=== PATIENT | male | born 1995 | race Caucasian/White ===

== ENCOUNTER 2020-12-19 05:20 | Emergency (ER) | payer SELFPAY ==
--- NOTE | ~2020-12-19 | XR_ITS ---
EXAMINATION: XR hip RT min 2V DATE: 12/19/2020 06:09 INDICATION: Right hip injury and pain. TECHNIQUE: 2 views of right hip were obtained. COMPARISON: None. FINDINGS: Bone alignment is normal. No fracture. Right hip joint space is normal. IMPRESSION: 1. Normal right hip. Reviewed, dictated and finalized at location [facility]. IMPRESSION: 1. Normal right hip.
--- NOTE | ~2020-12-19 | XR_ITS ---
EXAMINATION: XR knee RT 3V DATE: 12/19/2020 06:09 INDICATION: Right knee injury. TECHNIQUE: 3 views of right knee were obtained. COMPARISON: None. FINDINGS: Bone alignment is normal. No fracture. Joint spaces are well maintained. There is no knee j oint effusion. IMPRESSION: 1. Normal right knee. Reviewed, dictated and finalized at location A. IMPRESSION: 1. Normal right knee.
--- NOTE | ~2020-12-19 | XR_ITS ---
EXAMINATION: XR elbow RT min 3V DATE: 12/19/2020 06:08 INDICATION: Right elbow injury. TECHNIQUE: 4 views of right elbow were obtained. COMPARISON: None. FINDINGS: Bone alignment is normal. No fracture. Joint spaces are well maintained. There is no elbow joint effusion. IMPRESSION: 1. Normal right elbow. Reviewed, dictated and finalized at location A. IMPRESSION: 1. Normal right elbow.
[2020-12-19 05:20] VITALS: BP 147/89; PULSE 100; RESP 20; TEMP 37.1; O2SAT 99
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
[2020-12-19 06:24] VITALS: BP 137/86; PULSE 94; RESP 20; O2SAT 98
[2020-12-19] MEDS: LIDO 1%/EPINEPHRINE 1:100,000 20 ML VIAL INFILTRATE (06:30)
--- NOTE | 2020-12-19 06:36 | PC.NURSE ---
0530 right elbow cleansed with surclenz scrubbing sponge as much as pt would allow by RN. 0630 right elbow numbed with lidocaine per dr queen. wound to elbow deep scrubbing per dr queen.
[2020-12-19] MEDS: TETANUS,DIPHTHERIA,AC PERTUSSIS ADULT 0.5 ML (ADACEL) IM (07:02)
[2020-12-19] MEDS: NEOMYCIN/POLYMYXIN/BACITRACIN OINTMENT PACKET 1 PACKET TOPICAL (07:05)
[2020-12-19 07:17] VITALS: BP 142/70; PULSE 99; RESP 20; TEMP 36.9; O2SAT 99
== END 2020-12-19 07:22 | disposition home or self-care (01) ==
PROVIDERS: Emergency Provider Emergency Medicine
DX: S51.011A Laceration without foreign body of right elbow, initial encounter (principal); T14.8XXA Other injury of unspecified body region, initial encounter; S56.19 Other injury of flexor muscle, fascia and tendon of other and unspecified finger at forearm level; V29.9XXA Motorcycle rider (driver) (passenger) injured in unspecified traffic accident, initial encounter
CPT/HCPCS: 12001; 73080; 73502; 73562; 90471; 90715; 99283; 99284

== ENCOUNTER 2021-03-06 16:04 | Emergency (ER) | payer BC, SELFPAY ==
--- NOTE | ~2021-03-06 | CT_ITS ---
EXAMINATION: CT abdomen pelvis wo con DATE: 03/06/2021 18:49 INDICATION: Hematuria TECHNIQUE: Computed tomography (CT) of the abdomen and pelvis was performed without intravenous contr ast. Automated exposure control and iterative reconstruction technique were employed. The dose-length product was 166.78 mGy-cm. COMPARISON: 02/05/2019 FINDINGS: Lung bases are clear. Visualized inferior heart is normal. No pericardial or pleural effusion. Liver, gallbladder, spleen, pancreas and bilateral adrenal glands are normal. Bilateral nonobstructing neph rolithiasis with 5 mm stone at the left renal pelvis and 2 mm stone at the lower pole of the right ki dney and 2-3 mm stones at the mid and lower left kidney. No stones seen along the course of the bilat eral ureters. No hydronephrosis. There are scattered colonic diverticula without adjacent inflammator y change to suggest diverticulitis. Small bowel and appendix are normal. Bladder is normal. No free i ntraperitoneal gas or fluid. Shotty bilateral inguinal lymph nodes. No pathologically enlarged abdomi nal or pelvic lymphadenopathy. Mild lumbar levocurvature. IMPRESSION: 1. Bilateral nonobstructing nephrolithiasis. Reviewed, dictated and finalized at location A.
[2021-03-06 16:07] VITALS: BP 116/86; PULSE 98; RESP 14; TEMP 36.4; O2SAT 98
[2021-03-06 17:04] LABS: Add Urine Microscopic? YES; Appearance Urine Cloudy (Clear); Bilirubin Urine Negative (Negative); Blood Urine 3+ (Negative); Color Urine Amber (Yellow); Glucose Urine UA Negative (Negative); Ketones Urine Negative (Negative); Leukocyte Esterase Ur 2+ LEU/UL (Negative); Mucus Urine Heavy /lpf; Nitrate Urine Negative (Negative); Protein Urine 2+ mg/dL (Negative); RBC Urine >75 /hpf (0-2); Specific Grav Ur 1.029 (1.001-1.035); WBC Clumps Urine Present /HPF; WBC Urine >75 /hpf
[2021-03-06 17:14] LABS: Squamous Epithelial Cell Urine Occasional /hpf (Few)
[2021-03-06 17:57] LABS: Basophils Absolute Auto 0.1 K/mm3 (0.0-0.1); Basophils Percent Auto 0.9 % (0.2-1.2); Eosinophils Absolute Auto 0.2 K/mm3 (0-0.3); Eosinophils Percent Auto 2.8 % (0-4.4); Hematocrit 46.9 % (42.0-52.0); Hemoglobin 15.1 g/dL (14.0-18.0); Immature Granulocyte Absolute 0.04 K/mm3 (0.00-0.031); Immature Granulocyte Percent A 0.5 % (0-0.5); Lymphocytes Absolute Auto 2.16 K/mm3 (0.9-3.2); Lymphocytes Percent Auto 27.2 % (18.3-44.2); Mean Corpuscular HGB Conc 32.2 g/dl (32-36); Mean Corpuscular Hemoglobin 29.3 pg (26-34); Mean Corpuscular Volume 90.9 fl (80-100); Monocytes Absolute Auto 0.7 K/mm3 (0.1-0.6); Monocytes Percent Auto 9.1 % (2.6-8.5); Neutrophils Absolute Auto 4.7 K/mm3 (1.3-6.7); Neutrophils Percent Auto 59.5 % (45.5-73.1); Platelet Count Result 274 k/mm3 (150-375); Red Blood Count 5.16 M/mm3 (4.6-6.20); Red Cell Distribution Width 13.4 % (11.5-14.5)
[2021-03-06 18:25] LABS: Alanine Aminotransferase 12 U/L (4-50); Albumin Level 4.6 g/dL (3.5-5.1); Alkaline Phosphatase 79 U/L (38-126); Anion Gap 8 mmol/L (8-16); Aspartate Amino Transferase 26 U/L (17-59); Bilirubin,Total 0.4 mg/dL (0.2-1.3); Blood Urea Nitrogen 12 mg/dL (9-20); Calcium 9.7 mg/dL (8.4-10.2); Carbon Dioxide 28 mmol/L (22-30); Chloride 105 mmol/L (98-107); Estimated CRCL calculation 66 ml/min; Estimated Glomerular Filt Rate > 60; Glucose 86 mg/dL (75-110); Potassium 4.2 mmol/L (3.4-5.0); Sodium 141 mmol/L (137-145)
--- NOTE | 2021-03-06 18:33 | ED.ABDPAIN ---
HPI - Abdominal Pain General Chief Complaint: Urogenital-Male Stated Complaint: KIDNEY STONE, HEMATURIA Time Seen by Provider: 03/06/21 18:24 Source: RN notes reviewed History of Present Illness HPI narrative: Patient presents emergency department from home for hematuria. Patient states symptoms began today. Patient states approximately month ago he was diagnosed with kidney stones another emergency department. He states that that time he was told he had a UTI and was prescribed Cipro 250 mg twice a day states he does not take that medication until he began taking it a week ago he states he does not know why did not take it previously but states he is now only taking 1 tablet a day he denies any fever chills chest pain shortness of breath or abdominal pain notes mild flank pain Related Data Allergies Allergy/AdvReac Type Severity Reaction Status Date / Time No Known Allergies Allergy Unverified 01/28/17 13:59 Review of Systems Review of Systems: Narrative: Gen.: Denies fevers or chills ENT: Denies congestion Respiratory: Denies shortness of breath or cough CV: Denies chest pain or palpitations GI: Denies abdominal pain nausea, emesis or diarrhea reports flank pain reports hematuria Musculoskeletal: Denies back pain or muscle pain Neuro: Denies numbness, tingling, weakness or focal weakness Skin: Denies rash Except as documented, all other systems reviewed and negative [facility] Past Medical History Medical History Kidney stones Seasonal allergies Social History Social History Smoking packs per day: 1 Smoking cigarettes per day: 20.0 Smoking status: Current every day smoker Tobacco type: cigarettes Alcohol intake: never Substance use: current Substance use type: marijuana Exam Narrative: Exam Narrative: APPEARANCE: No acute distress, nontoxic, resting in bed EYES: EOMI HEENT: Normocephalic, atraumatic, OMM RESPIRATORY: No respiratory distress Clear to auscultation bilaterally with no rhonchi wheezing or rales. CARDIOVASCULAR: Regular rate and rhythm without murmurs rubs or gallops. ABDOMINAL: Soft, nontender, nondistended, no rebound or guarding mild bilateral flank tenderness MUSCULOSKELETAl: Moves all extremities. No clubbing, cyanosis or edema. NEURO: Awake and alert. Following commands, speech normal, no focal deficits SKIN:: Warm, dry. No rashes lesions or abrasions PSYCHIATRIC: Normal affect/mood, Course Course Emergency Course: Called and discussed with Dr. rPado patient at this time recommends patient Cipro be increased to 500 mg twice a day with discharge and follow-up as an outpatient Discussed with patient results of workup and diagnosis. Discussed need for follow-up with primary care, proper use of medication, and reasons to return to the emergency department. Patient understands and agrees to current treatment plan Vital Signs Vital signs: Vital Signs Temperature 97.5 F L 03/06/21 16:07 Pulse Rate 98 03/06/21 16:07 Respiratory Rate 14 03/06/21 16:07 Blood Pressure 116/86 03/06/21 16:07 Pulse Oximetry 98 03/06/21 16:07 Temperature 97.5 F L 03/06/21 16:07 Pulse Rate 98 03/06/21 16:07 Respiratory Rate 14 03/06/21 16:07 Blood Pressure 116/86 03/06/21 16:07 Pulse Oximetry 98 03/06/21 16:07 MDM - Abdominal Pain Lab Data Result diagrams: 03/06/21 17:49 03/06/21 17:49 Labs: Lab Results 03/06/21 03/06/21 03/06/21 Range/Units 16:46 17:49 17:49 WBC 8.0 (4.5-10.0) K/mm3 RBC 5.16 (4.6-6.20) M/mm3 Hgb 15.1 (14.0-18.0) g/dL Hct 46.9 (42.0-52.0) % MCV 90.9 (80-100) fl MCH 29.3 (26-34) pg MCHC 32.2 (32-36) g/dl RDW 13.4 (11.5-14.5) % Plt Count 274 (150-375) k/mm3 MPV 9.0 (7.4-10.4) fl Immature Gran % (Auto) 0.5 (0-0.5) % Neut % (Auto) 59.5 (45.5-73.1) %
[2021-03-06 20:04] VITALS: BP 107/74; PULSE 75; RESP 18; TEMP 36.7; O2SAT 100
[2021-03-06] MEDS: CIPROFLOXACIN 500 MG TAB PO (20:04)
[2021-03-06 20:18] VITALS: BP 110/78; PULSE 78; RESP 18; TEMP 36.7
== END 2021-03-06 20:19 | disposition home or self-care (01) ==
PROVIDERS: Emergency Medicine; Emergency Provider Emergency Medicine
DX: N39.0 Urinary tract infection, site not specified (principal); N20.0 Calculus of kidney; Z87.442 Personal history of urinary calculi; F17.210 Nicotine dependence, cigarettes, uncomplicated
CPT/HCPCS: 36415; 74176; 80053; 81001; 83605; 85025; 87086; 99284; A9270

== ENCOUNTER 2022-02-26 10:01 | Emergency (ER) | payer BC, SELFPAY ==
--- NOTE | ~2022-02-26 | CT_ITS ---
EXAMINATION: CT abdomen pelvis w con DATE: 02/26/2022 10:49 INDICATION: Right lower quadrant and right flank abdominal pain, nausea. TECHNIQUE: Computed tomography (CT) of the abdomen and pelvis was performed with 100 CC Omnipaque 300 intravenous contrast. Automated exposure control and iterative reconstruction technique were employe d. Exam dose: 170.20 mGy-cm total exam DLP. COMPARISON: 03/06/2020 CT abdomen pelvis FINDINGS: Lung bases are clear. Heart size is normal. No pericardial or pleural effusion. The lung bases are clear. The liver, gallbladder, spleen, pancreatic duct and adrenal glands are normal. No bile duct or pancre atic duct dilatation. 15 x 6 mm right renal pelvic calculus with attenuation of 1268 Hounsfield units. There is mild right hydronephrosis. 2.9 x 4.2 mm lower pole nonobstructing right renal calculus. Approximately 2 x 3.4 mm mid left renal calculus. 1.6 x 2.4 mm lower pole nonobstructing left renal calculus. No ureteral calculus is noted on either side. Normal caliber of the abdominal aorta. No intraperitoneal or retroperitoneal or pelvic mass lesion or adenopathy or ascites. Normal appendix. No bowel obstruction or intraperitoneal free air. The urinary bladder is unremarkable except for diffuse moderate thickening of the wall; recommend cli nical correlation to exclude cystitis. Included skeletal structures are unremarkable. IMPRESSION: 15 x 6 mm right renal pelvic calculus with mild right hydronephrosis Bilateral nonobstructive nephrolithiasis Thickening of the urinary bladder wall; recommend clinical correlation for possible cystitis Normal appendix Reviewed, dictated and finalized at [facility]. Reviewed, dictated and finalized at location A. IMPRESSION: 15 x 6 mm right renal pelvic calculus with mild right hydronephros is Bilateral nonobstructive nephrolithiasis Thickening of the urinary bladder wall; recommend clinical correlation for poss ible cystitis Normal appendix
[2022-02-26 10:06] VITALS: BP 114/78; PULSE 89; RESP 14; TEMP 36.3; O2SAT 100
--- NOTE | 2022-02-26 10:09 | ED.ABDPAIN ---
HPI - Abdominal Pain General Chief Complaint: Abdominal Pain Stated Complaint: kidney stones Time Seen by Provider: 02/26/22 10:03 History of Present Illness HPI narrative: 26-year-old male presents the emergency room with a sudden onset of right lower quadrant pain. Pain is associated with nausea. Describes pain as a throbbing and stabbing pain. Denies radiating pain. Patient has a history of kidney stones, and has had lithotripsy and stent placement in the past. Also reports decreased urination output. Denies fever, injury or trauma. Denies vomiting, diarrhea or constipation. 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 EYES: Denies visual changes, redness, or discharge. ENT: Denies rhinorrhea, congestion, sore throat, or otalgia. CARDIOVASCULAR: Denies chest pain, palpitations, or edema. RESPIRATORY: Denies cough or dyspnea. GASTROINTESTINAL: Reports abdominal pain, nausea GENITOURINARY: Denies dysuria or hematuria. SKIN: Denies rash or itching. MUSCULOSKELETAL: Denies back pain, joint pain, or myalgia. NEUROLOGIC: Denies headache, numbness, dizziness, or weakness. PSYCHIATRIC: Denies anxiety or depression. PMFSH Past Medical History Medical History Kidney stones Seasonal allergies Social History Social History Smoking packs per day: 1 Smoking cigarettes per day: 20.0 Smoking status: Current every day smoker Tobacco type: cigarettes Alcohol intake: never Substance use: current Substance use type: marijuana Gender identity (if verbalized by the patient): Male Exam Narrative: GENERAL: Well-appearing, well-nourished, no physical limitations, and in no acute distress. HEAD: Normocephalic, atraumatic. EYES: Conjunctivae normal, PERRLA and EOMI. CHEST: Clear to auscultation. No respiratory distress. No wheezes rales or rhonchi. No tenderness. HEART: Regular rate and rhythm. No murmur heard. Normal peripheral pulses. ABDOMEN: Soft, right lower quadrant tenderness,, nondistended, normal active bowel sounds. Negative psoas or obturator signs, negative heel strike BACK: Right CVA tenderness; EXTREMITIES: Normal range of motion. No edema. No clubbing or cyanosis SKIN: Warm, dry, no rash. No noted wounds NEURO: No focal deficits. Alert and oriented x3. MAEW. CN's II-XI intact bilaterally, normal gait PSYCH: Cooperative. Normal mood and affect. Course Vital Signs Vital signs: Vital Signs Temperature 36.3 C L 02/26/22 10:06 Pulse Rate 89 02/26/22 10:06 Respiratory Rate 14 02/26/22 10:06 Blood Pressure 114/78 02/26/22 10:06 Pulse Oximetry 100 02/26/22 10:06 Oxygen Delivery Room Air 02/26/22 10:06 Temperature 36.3 C L 02/26/22 10:06 Pulse Rate 70 02/26/22 10:58 Respiratory Rate 16 02/26/22 11:43 Blood Pressure 108/63 02/26/22 11:43 Pulse Oximetry 98 02/26/22 11:45 Oxygen Delivery Room Air 02/26/22 10:06 MDM - Abdominal Pain Lab Data Result diagrams: 02/26/22 10:11 02/26/22 10:11 Labs: Lab Results 02/26/22 02/26/22 02/26/22 Range/Units 10:11 10:11 11:36 WBC 9.0 (4.5-10.0) K/mm3 RBC 4.98 (4.6-6.20) M/mm3 Hgb 14.5 (14.0-18.0) g/dL Hct 44.0 (42.0-52.0) % MCV 88.4 (80-100) fl MCH 29.1 (26-34) pg MCHC 33.0 (32-36) g/dl RDW 13.5 (11.5-14.5) % Plt Count 335 (150-375) k/mm3 MPV 9.3 (7.4-10.4) fl Immature Gran % (Auto) 0.2 (0-0.5) % Neut % (Auto) 64.8 (45.5-73.1) % Lymph % (Auto) 25.4 (18.3-44.2) % [place] % (Auto) 6.7 (2.6-8.5) % Eos % (Auto) 2.0 (0-4.4) % Baso % (Auto) 0.9 (0.2-1.2) % L
[2022-02-26 10:19] LABS: Basophils Absolute Auto 0.1 K/mm3 (0.0-0.1); Basophils Percent Auto 0.9 % (0.2-1.2); Eosinophils Absolute Auto 0.2 K/mm3 (0-0.3); Hemoglobin 14.5 g/dL (14.0-18.0); Immature Granulocyte Absolute 0.02 K/mm3 (0.00-0.031); Immature Granulocyte Percent A 0.2 % (0-0.5); Lymphocytes Absolute Auto 2.28 K/mm3 (0.9-3.2); Lymphocytes Percent Auto 25.4 % (18.3-44.2); Mean Corpuscular Hemoglobin 29.1 pg (26-34); Mean Corpuscular Volume 88.4 fl (80-100); Mean Platelet Volume 9.3 fl (7.4-10.4); Monocytes Absolute Auto 0.6 K/mm3 (0.1-0.6); Monocytes Percent Auto 6.7 % (2.6-8.5); Neutrophils Absolute Auto 5.8 K/mm3 (1.3-6.7); Neutrophils Percent Auto 64.8 % (45.5-73.1); Platelet Count Result 335 k/mm3 (150-375); Red Blood Count 4.98 M/mm3 (4.6-6.20); Red Cell Distribution Width 13.5 % (11.5-14.5)
[2022-02-26] MEDS: SODIUM CHLORIDE 0.9% IV 500 ML 999 ML IV CONT (10:19)
[2022-02-26] MEDS: ONDANSETRON INJ 4 MG/2 ML VIAL IV PUSH (10:19)
[2022-02-26] MEDS: fentaNYL CITRATE INJ (*CRX) 100 MCG/2 ML VIAL 50 MCG IV PUSH (10:19)
[2022-02-26 10:20] VITALS: BP 107/95; PULSE 88; RESP 16; O2SAT 99
[2022-02-26 10:40] LABS: Alanine Aminotransferase 15 U/L (6-50); Albumin Level 4.8 g/dL (3.5-5.1); Alkaline Phosphatase 66 U/L (38-126); Anion Gap 8 mmol/L (8-16); Aspartate Amino Transferase 25 U/L (17-59); Bilirubin,Total 0.4 mg/dL (0.2-1.3); Blood Urea Nitrogen 13 mg/dL (9-20); Calcium 8.9 mg/dL (8.4-10.2); Carbon Dioxide 27 mmol/L (22-30); Chloride 105 mmol/L (98-107); Estimated CRCL calculation 84 ml/min; Estimated Glomerular Filt Rate > 60; Glucose 102 mg/dL (65-110); Potassium 4.3 mmol/L (3.4-5.0); Sodium 140 mmol/L (137-145)
[2022-02-26 10:58] VITALS: BP 106/70; PULSE 70; RESP 14; O2SAT 99
--- NOTE | 2022-02-26 10:59 | PC.NURSE ---
Pt asked to provide urine sample. Pt states he is unable to void at this time.
[2022-02-26 11:43] VITALS: BP 108/63; RESP 16; O2SAT 98
[2022-02-26 11:44] LABS: Appearance Urine Clear (Clear); Bilirubin Urine Negative (Negative); Blood Urine 3+ (Negative); Color Urine Yellow (Yellow); Glucose Urine UA Negative (Negative); Ketones Urine Negative (Negative); Leukocyte Esterase Ur Negative LEU/UL (Negative); Nitrate Urine Negative (Negative); Protein Urine 2+ mg/dL (Negative); Specific Grav Ur <= 1.005 (1.001-1.035); Urobilinogen Urine 0.2 mg/dL (<2.0)
[2022-02-26 11:45] VITALS: O2SAT 98
[2022-02-26 11:56] LABS: Bacteria Urine Trace /hpf; Calcium Oxalate Crystals Urine Present /hpf; Mucus Urine Moderate /lpf; RBC Urine 51-75 /hpf (0-2); WBC Urine 21-30 /hpf
[2022-02-26 11:59] LABS: Add Urine Microscopic? YES
[2022-02-26 12:22] VITALS: BP 101/56; PULSE 73; RESP 18; O2SAT 98
== END 2022-02-26 12:24 | disposition home or self-care (01) ==
PROVIDERS: Emergency Provider Nurse Practitioner Family
DX: R31.9 Hematuria, unspecified (principal); F17.210 Nicotine dependence, cigarettes, uncomplicated
CPT/HCPCS: 36415; 74177; 80053; 81001; 85025; 87086; 96361; 96374; 96375; 99284; J2405; J3010; J7040; Q9967

== ENCOUNTER 2022-04-03 23:50 | Emergency (ER) | payer BC, SELFPAY ==
[2022-04-04] VITALS: BP 130/88; PULSE 68; RESP 18; TEMP 36.4; O2SAT 100
--- NOTE | 2022-04-04 00:12 | ED.URI ---
HPI - URI/Sore Throat General Chief Complaint: Upper Respiratory Infection Stated Complaint: covid Source: patient Mode of arrival: ambulatory History of Present Illness HPI Narrative: this is a 26-year-old gentleman that presents after he tested positive earlier this evening with body aches currently no shortness of breath O2 sat 100% no fever chills had an episode of nausea with no abdominal pain no chest pain no diarrhea constipation. Onset (ago): hour(s) Consistency: constant Severity: moderate Related Data Allergies Allergy/AdvReac Type Severity Reaction Status Date / Time No Known Allergies Allergy Verified 04/03/22 23:58 Review of Systems Review of Systems: All systems reviewed & are unremarkable except as noted in HPI and below PMFSH Past Medical History Medical History Kidney stones Seasonal allergies Social History Social History Smoking packs per day: 1 Smoking cigarettes per day: 20.0 Smoking status: Current every day smoker Tobacco type: cigarettes Alcohol intake: never Substance use: current Substance use type: marijuana Gender identity (if verbalized by the patient): Male Exam Const: General: healthy appearing and no acute distress Limitations: no limitations HENMT: Head: normal to inspection Face and sinus: normal facial exam Mouth: Yes Normal oral and palatal mucosa present Eyes: Conjunctivae: conjunctivae normal Pupils: Equal, round and reactive pupils present EOM: EOMs intact bilaterally Direct Ophthalmoscopy: no photophobia Neck: Neck: normal visual inspection Chest: Chest palpation & inspection: normal inspection of the chest Resp: Effort & Inspection: normal respiratory effort Auscultation: clear to auscultation bilaterally Cardio: Rate: regular rate Rhythm: regular rhythm GI: GI Palp: Yes Soft to palpation Auscultation: normal bowel sounds Skin: General skin exam: normal color Rashes: no rashes Wounds: no wounds Neuro: General: patient oriented x3 and moves all extremities Cranial nerves: Yes Nystagmus not present Extrem: General: normal to inspection Psych: Mental Status: mental status grossly normal Course Course Emergency Course: Patient received a dose of ibuprofen and given IV fluids with normal saline and Paxlovid was sent to his pharmacy. Vital Signs Vital signs: Vital Signs Temperature 36.4 C 04/04/22 00:00 Pulse Rate 68 04/04/22 00:00 Respiratory Rate 18 04/04/22 00:00 Blood Pressure 130/88 04/04/22 00:00 Pulse Oximetry 100 04/04/22 00:00 Oxygen Delivery Room Air 04/04/22 00:00 Temperature 36.4 C 04/04/22 00:00 Pulse Rate 68 04/04/22 00:00 Respiratory Rate 18 04/04/22 00:00 Blood Pressure 130/88 04/04/22 00:00 Pulse Oximetry 100 04/04/22 00:00 Oxygen Delivery Room Air 04/04/22 00:00 Critical Care Time Critical Care Time Critical Care Time: No Discharge Plan Discharge Clinical Impression: COVID-19 Patient Disposition: Home, Self-Care Condition: Stable Instructions: Antibiotic Form, COVID-19 (Coronavirus Disease 2019) (ED) Additional Instructions: take medicine as prescribed, and take Tylenol or Motrin drink plenty of water and follow up primary care physician after self isolating for approximately 1 week. Prescriptions: New Paxlovid (EUA) 300 mg (150 mg x 2)-100 mg tablets,dose pack See Rx Instructions .ROUTE .COMPLEX Qty: 30 0RF Rx Instructions: take TWO 150 mg tablets of nirmatrelvir with ONE 100 mg tablet of ritonavir twice daily for 5 days Follow-up/Referrals: UNKNOWN,DOCTOR [Primary Care Provider] - Time of Disposition: 00:16
[2022-04-04] MEDS: IBUPROFEN 600 MG TABLET PO (00:26)
[2022-04-04] MEDS: SODIUM CHLORIDE 0.9% IV 1,000 ML 999 ML IV CONT (00:26)
[2022-04-04 01:34] VITALS: BP 135/80; PULSE 78; RESP 16; O2SAT 98
== END 2022-04-04 01:42 | disposition home or self-care (01) ==
PROVIDERS: Emergency Provider Emergency Medicine
DX: U07.1 COVID-19 (principal)
CPT/HCPCS: 96360; 99283; A9270; J7030

== ENCOUNTER 2022-09-18 19:13 | Emergency (ER) | payer BC, SELFPAY ==
--- NOTE | ~2022-09-18 | CT_ITS ---
EXAMINATION: CT abdomen pelvis wo con DATE: 09/18/2022 19:40 INDICATION: Left-sided abdomen pain. History of kidney stones. TECHNIQUE: Computed tomography (CT) of the abdomen and pelvis was performed without intravenous contr ast. The dose-length product was 177.20 mGy-cm. Automated exposure control and iterative reconstructi on technique were employed. COMPARISON: CT dated 02/26/2022. FINDINGS: Lung bases are unremarkable. Heart size normal. No significant pleural or pericardial effus ion. The liver, spleen, pancreas, adrenal glands are unremarkable. There is a 6 x 4 mm left UVJ stone with mild hydroureteronephrosis. There are bilateral renal stones. Largest stone in the right renal pelvi s measuring 20 x 9 mm. Mild right renal caliectasis. No significant vascular abnormality. Gallbladder is present. The liver, spleen, pancreas, adrenal glands are unremarkable. No lymphadenopathy. No acute osseous ab normality. Nonobstructive bowel gas pattern. No free air or free fluid. Bladder is decompressed. IMPRESSION: 1. 6 mm left UVJ stone with mild hydroureteronephrosis. 2: Bilateral nephrolithiasis. Reviewed, dictated and finalized at location A. [employer]
[2022-09-18 19:19] VITALS: BP 123/94; PULSE 73; RESP 20; TEMP 36.6; O2SAT 100
[2022-09-18 19:29] LABS: Add Urine Microscopic? YES; Appearance Urine Clear (Clear); Bilirubin Urine Negative (Negative); Blood Urine 3+ (Negative); Color Urine Light Yellow (Yellow); Glucose Urine UA Negative (Negative); Ketones Urine Negative (Negative); Leukocyte Esterase Ur 2+ LEU/UL (Negative); Nitrate Urine Negative (Negative); Protein Urine 1+ (Negative); Specific Grav Ur 1.025 (1.010-1.020); pH Urine 6.5 (5.0-8.0)
[2022-09-18 19:37] LABS: Basophils Absolute Auto 0.08 K/mm3 (0.00-0.10); Basophils Percent Auto 0.6 % (0.0-1.0); Eosinophils Percent Auto 1.4 % (1.0-6.0); Hematocrit 44.3 % (40.0-54.0); Hemoglobin 14.5 g/dL (14.0-18.0); Immature Granulocyte Absolute 0.04 K/mm3 (0.00-0.00); Immature Granulocyte Percent A 0.3 % (0.0-0.0); Lymphocytes Absolute Auto 2.29 K/mm3 (1.10-4.50); Mean Corpuscular HGB Conc 32.7 g/dL (32.0-36.0); Mean Corpuscular Hemoglobin 28.7 pg (27.0-31.0); Mean Corpuscular Volume 87.7 fL (78.0-102.0); Monocytes Absolute Auto 1.15 K/mm3 (0.10-0.90); Monocytes Percent Auto 8.1 % (2.0-11.0); Neutrophils Absolute Auto 10.5 K/mm3 (1.7-7.2); Neutrophils Percent Auto 73.6 % (50.0-70.0); Platelet Count Result 350 K/mm3 (150-420); Red Blood Count 5.05 M/mm3 (4.70-6.10); Red Cell Distribution Width 13.7 % (11.6-14.4); White Blood Count 14.3 K/mm3 (4.8-10.8)
[2022-09-18] MEDS: SODIUM CHLORIDE 0.9% IV 1,000 ML 999 ML IV CONT (19:37)
[2022-09-18] MEDS: KETOROLAC 30 MG/ML VIAL (*BKC) IV PUSH (19:39)
[2022-09-18 19:40] LABS: Bacteria Urine 1+ /hpf; RBC Urine >75 /hpf (0-2); Squamous Epithelial Cell Urine None seen /hpf (Few); WBC Urine 16-20 /hpf (0-3)
[2022-09-18] MEDS: ONDANSETRON INJ 4 MG/2 ML VIAL IV PUSH (19:40)
[2022-09-18 19:52] LABS: Partial Thromboplastin Time 28.2 SEC (23.90-30.70); Prothrombin Time 10.6 Seconds (9.50-12.10)
[2022-09-18 19:53] LABS: Alanine Aminotransferase 18 U/L (16-63); Albumin Level 4.1 g/dL (3.4-5.0); Alkaline Phosphatase 106 U/L (46-116); Anion Gap 10 mmol/L (8-16); Aspartate Amino Transferase 19 U/L (15-37); Bilirubin,Total 0.2 mg/dL (0.00-1.00); Blood Urea Nitrogen 16 mg/dL (7-18); Calcium 9.2 mg/dL (8.5-10.1); Carbon Dioxide 29 mmol/L (21-32); Chloride 104 mmol/L (98-108); Estimated CRCL calculation 72 ml/min; Estimated Glomerular Filt Rate > 60; Glucose 102 mg/dL (70-99); Lipase 28 U/L (16-77); Osmolality Calculated 297 mOsm/kg (285-295); Potassium 3.8 mmol/L (3.5-5.1); Sodium 143 mmol/L (136-145)
--- NOTE | 2022-09-18 20:02 | ED.ABDPAIN ---
HPI - Abdominal Pain General Chief Complaint: Abdominal Pain Stated Complaint: pain on left side Time Seen by Provider: 09/18/22 19:19 Source: patient Mode of arrival: ambulatory Limitations: no limitations History of Present Illness HPI narrative: this is a 27-year-old male with history of kidney stones presents with some left flank pain radiating into his left groin area started earlier today with nausea, with no fever chills vitals are stable. Patient has no fever chills does have nausea with an episode of vomiting rates his pain about an 8/10 has a history of a kidney stones, with some no chest pain no shortness of breath. MD elicited complaint: abdominal pain Pertinent past history: none Onset (ago): day(s) Pain Consistency: constant Location: none Severity: severe Pain scale (0-10): 8 Quality: aching Related Data Allergies Allergy/AdvReac Type Severity Reaction Status Date / Time No Known Allergies Allergy Verified 04/03/22 23:58 Review of Systems Review of Systems: All systems reviewed & are unremarkable except as noted in HPI and below PMFSH Past Medical History Medical History Kidney stones Seasonal allergies Social History Social History Smoking packs per day: 1 Smoking cigarettes per day: 20.0 Smoking status: Current every day smoker Tobacco type: cigarettes Alcohol intake: never Substance use: current Substance use type: marijuana Gender identity (if verbalized by the patient): Male Exam Const: General: healthy appearing Nutritional Appearance: well nourished Orientation/consciousness: patient oriented x3 Limitations: no limitations HENMT: Head: normal to inspection Ears: external ears normal Face and sinus: normal facial exam Mouth: Yes Normal oral and palatal mucosa present Eyes: Conjunctivae: conjunctivae normal Pupils: Equal, round and reactive pupils present EOM: EOMs intact bilaterally Neck: Neck: normal visual inspection Chest: Chest palpation & inspection: normal inspection of the chest Resp: Effort & Inspection: normal respiratory effort Auscultation: clear to auscultation bilaterally Cardio: Rate: regular rate Rhythm: regular rhythm GI: GI Palp: Yes Soft to palpation Auscultation: normal bowel sounds : General: Yes bladder normal to palpation Skin: General skin exam: normal color Rashes: no rashes Wounds: no wounds Neuro: General: patient oriented x3, moves all extremities, no meningeal signs and no focal motor deficits Cranial nerves: Yes Nystagmus not present Extrem: General: normal to inspection and no clubbing, cyanosis or edema Psych: Mental Status: mental status grossly normal Course Course Emergency Course: Labs reviewed with patient, patient has an elevated white count will give a dose of IV ceftriaxone 1g, patient received 30mg IV Toradol and pain has improved as well as receiving Zofran for nausea. CT scan reviewed and shows a 6x4mm stone at the left UVJ, and discussed the findings with urologist. Vital Signs Vital signs: Vital Signs Temperature 36.6 C 09/18/22 19:19 Pulse Rate 73 09/18/22 19:19 Respiratory Rate 20 09/18/22 19:19 Blood Pressure 123/94 H 09/18/22 19:19 Pulse Oximetry 100 09/18/22 19:19 Oxygen Delivery Room Air 09/18/22 19:19 Temperature 36.6 C 09/18/22 19:19 Pulse Rate 73 09/18/22 19:19 Respiratory Rate 20 09/18/22 19:19 Blood Pressure 123/94 H 09/18/22 19:19 Pulse Oximetry 100 09/18/22 19:19 Oxygen Delivery Room Air 09/18/22 19:19 MDM - Abdominal Pain Lab Data 09/18/22 19:32 09/18/22 19:32 Labs: Lab Results 09/18/22 09/18/22 09/18/22 Range/Units 19:26 19:32 19:32 WBC 14.3 H (4.8-10.8) K/mm3 RBC 5.05 (4.70-6.10) M/mm3 Hgb 14.5 (14.0-18.0) g/dL Hct 44.3 (40.0-54.0) % MCV 87.7 (78.0-102.0)
[2022-09-18 20:42] VITALS: BP 136/86; PULSE 69; RESP 20; TEMP 36.7; O2SAT 100
== END 2022-09-18 20:44 | disposition home or self-care (01) ==
PROVIDERS: Emergency Provider Emergency Medicine
DX: N20.1 Calculus of ureter (principal); F17.210 Nicotine dependence, cigarettes, uncomplicated
CPT/HCPCS: 36415; 74176; 80053; 81001; 83605; 83690; 85025; 85610; 85730; 87086; 96361; 96365; 96375; 99284; J0696; J1885; J2405; J7030

== ENCOUNTER 2024-04-30 14:49 | Emergency (ER) | payer BC, SELFPAY ==
[2024-04-30 14:54] VITALS: BP 123/62; PULSE 64; RESP 18; TEMP 36.2; O2SAT 100
--- NOTE | 2024-04-30 14:54 | ED.NAVMDI ---
HPI - Nausea/Vomiting/Diarrhea General Chief complaint: Nausea/Vomiting/Diarrhea Stated complaint: drank to much , vomiting Source: patient Mode of arrival: ambulatory Limitations: no limitations History of Present Illness HPI Narrative: 28-year-old male, smoker presented to the ED after ingesting a large amount of alcohol yesterday with -- multiple episodes of nausea and vomiting. Vomitus does not have any blood. -- Multiple episodes of diarrhea. -- Diffuse abdominal pain no fever or chills. No history of prior abdominal surgeries. MD elicited complaint: nausea, vomiting and diarrhea Onset (ago): day(s) ( One day) Description of vomiting: watery Description of diarrhea: watery Associated nausea: Yes Associated abdominal pain: Yes Location of pain: diffuse Radiation: diffuse Pain consistency: constant Quality: aching Exacerbating factors: none Relieving factors: none Context: alcohol abuse Associated symptoms: denies other symptoms, fever/chills and nausea/vomiting Related Data Allergies Allergy/AdvReac Type Severity Reaction Status Date / Time No Known Allergies Allergy Verified 04/30/24 14:52 Review of Systems Review of Systems: All systems reviewed & are unremarkable except as noted in HPI and below Constitutional: Constitutional: Reports as per HPI and Reports no additional constitutional complaints Eyes: Eyes: Reports as per HPI and Reports no additional eye complaints ENT: Reports system reviewed and no additional complaints, except as documented and Reports as per HPI Cardiovascular: Cardiovascular: Reports as per HPI and Reports no additional cardiovascular complaints Respiratory: Respiratory: Reports as per HPI and Reports no additional respiratory complaints Gastrointestinal: Gastrointestinal: Reports as per HPI, Reports no additional gastrointestinal complaints, Reports abdominal pain, Reports diarrhea, Reports nausea and Reports vomiting Genitourinary: Genitourinary: Reports no additional male genitourinary complaints Musculoskeletal: Musculoskeletal: Reports no additional musculoskeletal complaints and Reports as per HPI Integumentary/Breasts: Skin/Breast: Reports system reviewed and no additional complaints, except as docu and Reports as per HPI Neurologic: Reports system reviewed and no additional complaints, except as documented and Reports as per HPI Psychiatric: Psychiatric: Reports no additional psychiatric complaints and Reports as per HPI Endocrine: Endocrine: Reports no additional endocrine complaints and Reports as per HPI Hematologic/Lymphatic: Hematologic/Lymphatic: Reports no additional hematologic/lymphatic complaints and Reports as per HPI Allergic/Immunologic: Allergic/Immunologic: Reports no additional allergic/immunologic complaints and Reports as per HPI PMFSH Past Medical History Medical History Kidney stones Seasonal allergies Social History Social History Smoking packs per day: 1 Smoking cigarettes per day: 20.0 Smoking status: Current every day smoker Tobacco type: cigarettes Alcohol intake: never Substance use: current Substance use type: marijuana Gender identity (if verbalized by the patient): Male Exam Narrative: blood pressure is stable. Heart rate of 64. Afebrile oxygen saturation of 100% on room air. Const: General: ill appearing Orientation/consciousness: patient oriented x3 Limitations: no limitations HENMT: Head: normal to inspection Ears: external ears normal Face/Nose/Sinus: Normal external nose present Face and sinus: normal facial exam Mouth: Yes Normal oral and palatal mucosa present Teeth and gingiva: dentition normal ( Extensive dental caries) Throat: posterior oropharynx normal Eyes: Conjunctivae: conjunctivae normal Cornea: corneas normal Pupils: Equal, round and reactive pupils present EOM:
[2024-04-30] MEDS: PROCHLORPERAZINE EDISYLATE 10 MG/2 ML VIAL IV PUSH (15:16)
[2024-04-30] MEDS: THIAMINE HCL INJ 100 MG, FOLIC ACID 1 MG, MULTIVITAMINS-12 INJ 10 ML, MAGNESIUM SULFATE... 500 MG IV CONT (15:16)
[2024-04-30 15:54] LABS: Basophils Absolute Auto 0.09 K/mm3 (0.00-0.10); Basophils Percent Auto 0.5 % (0.0-1.0); Eosinophils Absolute Auto 0.01 K/mm3 (0.02-0.50); Eosinophils Percent Auto 0.1 % (1.0-6.0); Hematocrit 41.2 % (40.0-54.0); Hemoglobin 13.7 g/dL (14.0-18.0); Immature Granulocyte Percent A 0.5 % (0.0-0.0); Lymphocytes Absolute Auto 1.12 K/mm3 (1.10-4.50); Mean Corpuscular HGB Conc 33.3 g/dL (32-36); Mean Corpuscular Hemoglobin 29.3 pg (27.0-31.0); Mean Corpuscular Volume 88.2 fL (78.0-102.0); Mean Platelet Volume 9.8 fl (8.7-11.0); Monocytes Absolute Auto 0.95 K/mm3 (0.10-0.90); Monocytes Percent Auto 5.1 % (2.0-11.0); Neutrophils Absolute Auto 16.26 K/mm3 (1.70-7.20); Neutrophils Percent Auto 87.8 % (50.0-70.0); Platelet Count Result 256 K/mm3 (150-420); Red Blood Count 4.67 M/mm3 (4.70-6.10); Red Cell Distribution Width 14.2 % (11.6-14.4); White Blood Count 18.5 K/mm3 (4.8-10.8)
[2024-04-30 16:44] LABS: Lactic Acid Reflex 1.3 mmol/L (0.7-2.0)
[2024-04-30 16:46] LABS: Alanine Aminotransferase 19 U/L (6-50); Albumin Level 4.6 g/dL (3.5-5.1); Alkaline Phosphatase 76 U/L (38-126); Anion Gap 10 mmol/L (4-12); Aspartate Amino Transferase 34 U/L (17-59); Bilirubin,Total 0.5 mg/dL (0.2-1.3); Blood Urea Nitrogen 14 mg/dL (9-20); Calcium 9.1 mg/dL (8.4-10.2); Carbon Dioxide 28 mmol/L (22-30); Chloride 104 mmol/L (98-107); Estimated CRCL calculation 98 ml/min; Estimated Glomerular Filt Rate > 60; Glucose 153 mg/dL (65-110); Osmolality Calculated 297 mOsm/kg (285-295); Potassium 3.7 mmol/L (3.4-5.0); Sodium 142 mmol/L (137-145)
[2024-04-30 17:03] VITALS: BP 129/72; PULSE 62; RESP 14; TEMP 36.6; O2SAT 99
[2024-04-30 17:08] LABS: Lipase 56 U/L (23-300)
== END 2024-04-30 17:10 | disposition home or self-care (01) ==
PROVIDERS: Emergency Provider Internal Medicine Critical Care Medicine
DX: K52.9 Noninfective gastroenteritis and colitis, unspecified (principal); F10.10 Alcohol abuse, uncomplicated; Y90.9 Presence of alcohol in blood, level not specified; F17.210 Nicotine dependence, cigarettes, uncomplicated
CPT/HCPCS: 36415; 80053; 83605; 83690; 85025; 96365; 96366; 96375; 99284; J0780; J3411; J3475; J7121